=== PATIENT | male | born 1965 | race Caucasian/White ===

== ENCOUNTER 2017-08-21 12:57 | Emergency (ER) | payer MEDICARE, MEDICAID ==
[~2017-08-21] VITALS: Ht 185.4 cm; Wt 86.2 kg
[~2017-08-21 12:57] MED LIST: METH4TAB PO; PAIN MED; SULF1TAB35 PO
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
[2017-08-21 13:38] LABS: BASOPHILS % (AUTO) 0 % (0-10); EOSINOPHILS # (AUTO) 0.1 10^3/uL (0.0-0.3); EOSINOPHILS % (AUTO) 1 % (0-10); HEMATOCRIT 38 % (40-54); HEMOGLOBIN 13.7 G/DL (13.3-17.7); LYMPHOCYTES # (AUTO) 1.5 X 10^3 (1.0-4.0); LYMPHOCYTES % (AUTO) 25 % (12-44); MEAN CORPUSCULAR HEMOGLOBIN 33 PG (25-34); MEAN CORPUSCULAR HGB CONC 36 G/DL (32-36); MEAN CORPUSCULAR VOLUME 91 FL (80-99); MEAN PLATELET VOLUME 10.1 FL (7.4-10.4); MONOCYTES # (AUTO) 0.6 X 10^3 (0.0-1.0); MONOCYTES % (AUTO) 9 % (0-12); NEUTROPHILS # (AUTO) 3.9 X 10^3 (1.8-7.8); NEUTROPHILS % (AUTO) 64 % (42-75); PLATELET COUNT 298 10^3/uL (130-400); RED BLOOD COUNT 4.19 10^6/uL (4.35-5.85); RED CELL DISTRIBUTION WIDTH 13.4 % (10.0-14.5); WHITE BLOOD COUNT 6.1 10^3/uL (4.3-11.0)
[2017-08-21 14:00] LABS: ALANINE AMINOTRANSFERASE 35 U/L (0-55); ALBUMIN 4.1 GM/DL (3.2-4.5); ALKALINE PHOSPHATASE 50 U/L (40-136); BILIRUBIN,TOTAL 0.3 MG/DL (0.1-1.0); BUN/CREATININE RATIO 10; CALCIUM 8.2 MG/DL (8.5-10.1); CARBON DIOXIDE 22 MMOL/L (21-32); CHLORIDE 102 MMOL/L (98-107); CREATININE SERUM 0.71 MG/DL (0.60-1.30); GFR ESTIMATED > 60; GLUCOSE 74 MG/DL (70-105); POTASSIUM 5.2 MMOL/L (3.6-5.0); SODIUM 137 MMOL/L (135-145); TOTAL PROTEIN 7.9 GM/DL (6.4-8.2)
--- OUTSIDE RECORDS SUMMARY | 2017-08-21 14:22 | XMS REPORT ---
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 08704635 Problem 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 Active 96302417 ALLERGIES No Information ENCOUNTERS Encounter Location Date Diagnosis [address] [id number] Dec, Mood disorder F39 and Acute bilateral low back pain without sciatica M54.[address] [id number] Nov, Mood disorder F39 ; Other fatigue R53.83 and Major depressive disorder, single episode, unspecified F32.9 [facility] [id number], [place] [address] Nov, 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 [address] [place] [id number] May, Ganglion cyst of wrist, left M67.432 [facility] [address] [facility] [id number], [place] [address] Nov, [facility] [address] [facility] [id number], [place] [address] Nov, [facility] [address] [id number], [place] [address] Nov, [facility] [id number] [address] Nov, [facility] [address] [facility] [id number] [place] [address] Nov, [facility] [address] [facility] [id number] [place] [address] Nov, IMMUNIZATIONS No Known Immunizations SOCIAL HISTORY Never Assessed REASON FOR VISIT assisted patient PLAN OF CARE VITAL SIGNS Height 73 in 2016-05-31 Weight 181 lbs 2016-05-31 Heart Rate 60 bpm 2016-05-31 Respiratory Rate 16 2016-05-31 BMI 23.88 kg/m2 2016-05-31 Blood pressure systolic 108 mmHg 2016-05-31 Blood pressure diastolic 68 mmHg 2016-05-31 MEDICATIONS Medication Instructions Dosage Frequency Start Date End Date Duration Status Naproxen 500 MG Orally every 12 hrs 1 tablet as needed 12h 25 May, 2016 Active RESULTS No Results PROCEDURES No Known procedures INSTRUCTIONS MEDICATIONS ADMINISTERED No Known Medications
--- OUTSIDE RECORDS SUMMARY | 2017-08-21 14:22 | XMS REPORT ---
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 99864012 Problem 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 Active 77256276 ALLERGIES No Known Allergies ENCOUNTERS Encounter Location Date Diagnosis [address] [id number] Dec, Mood disorder F39 and Acute bilateral low back pain without sciatica M54.[address] [id number] Nov, Mood disorder F39 ; Other fatigue R53.83 and Major depressive disorder, single episode, unspecified F32.9 [facility] [address] [id number] [address] Nov, 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 [id number], [place] [address] Nov, [facility] [address] [facility] [id number], [place] [address] Nov, [facility] [id number], [place] [address] Nov, [facility] [address] [facility] [id number] [place] [address] Nov, [facility] [address] [facility] [id number] [place] [address] Nov, [facility] [address] [facility] [id number] [place] [address] Nov, IMMUNIZATIONS No Known Immunizations SOCIAL HISTORY Never Assessed REASON FOR VISIT Nursing Home patient PLAN OF CARE VITAL SIGNS Height 72 in 2016-11-22 Weight 181 lbs 2016-11-22 Heart Rate 60 bpm 2016-11-22 Respiratory Rate 16 2016-11-22 BMI 24.55 kg/m2 2016-11-22 Blood pressure systolic 122 mmHg 2016-11-22 Blood pressure diastolic 74 mmHg 2016-11-22 MEDICATIONS Medication Instructions Dosage Frequency Start Date End Date Duration Status Multivitamin Adult - Orally Once a day 1 tablet 24h Nov, Active Citalopram Hydrobromide 20 MG Orally Once a day 1 tablet 24h Nov, 30 day(s) Active RESULTS No Results PROCEDURES No Known procedures INSTRUCTIONS MEDICATIONS ADMINISTERED No Known Medications
--- OUTSIDE RECORDS SUMMARY | 2017-08-21 14:22 | XMS REPORT ---
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 Active 00728606 ALLERGIES No Known Allergies ENCOUNTERS Encounter Location Date Diagnosis [address] [id number] Dec, Mood disorder F39 and Acute bilateral low back pain without sciatica M54.[address] [id number] Nov, Mood disorder F39 ; Other fatigue R53.83 and Major depressive disorder, single episode, unspecified F32.9 [facility] [id number], [place] [address] Nov, 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 [address] [place] [id number] May, Ganglion cyst of wrist, left M67.432 [facility] [address] [facility] [id number], [place] [address] Nov, [facility] [address] [facility] [id number], [place] [address] Nov, [facility] [address] [id number], [place] [address] Nov, [facility] [address] [facility] [id number] [place] [address] Nov, [facility] [address] [facility] [id number] [place] [address] Nov, [facility] [address] [facility] [id number] [place] [address] Nov, IMMUNIZATIONS No Known Immunizations SOCIAL HISTORY Never Assessed REASON FOR VISIT long term rx PLAN OF CARE VITAL SIGNS MEDICATIONS Medication Instructions Dosage Frequency Start Date End Date Duration Status Venlafaxine HCl 37.5 MG Orally twice a day 1 tablet with food 12h Nov, 30 day(s) Active RESULTS No Results PROCEDURES No Known procedures INSTRUCTIONS MEDICATIONS ADMINISTERED No Known Medications
--- OUTSIDE RECORDS SUMMARY | 2017-08-21 14:22 | XMS REPORT | Continuity of Care Document ---
Author Author [facility] Address Unknown Phone Unavailable Allergies There is no data. Medications There is no data. Problems Date Dx Coded Attending Type Code Diagnosis Diagnosed By 11/06/2013 TABITHA BAILEY, ISABELLA Estrella 294.9 OR COG DIS NOS 11/06/2013 ISABELLA LU PHD 303.90 ALCOHOLISM Procedures [place] [address] PSYCH DIAGNOSTIC EVALUATION 11/06/2013 Results There is no data. Encounters ACCT No. Visit Date/Time Discharge Status Pt. Type Provider Facility Loc./Unit Complaint [id number] 11/06/2013 08:55:00 11/06/2013 23:59:59 CLS Outpatient ISABELLA LU PHD
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
[2017-08-21 16:50] VITALS: BP 116/80
== END 2017-08-21 16:52 | disposition home or self-care (01) ==
LOC: EDUNIT# 12:57 → ER 12:58
DX: F10.10 Alcohol abuse, uncomplicated (principal)
CPT/HCPCS: 36415; 70450; 80053; 80320; 85025; 93005

== ENCOUNTER 2017-12-01 07:51 | Emergency (ER) | payer MEDICAID, MEDICARE ==
[~2017-12-01] VITALS: Ht 182.9 cm; Wt 79.4 kg
--- OUTSIDE RECORDS SUMMARY | 2017-12-01 07:55 | XMS REPORT | Continuity of Care Document ---
Author Author [facility] of [facility] of [facility] Address Unknown Phone Unavailable Allergies Active Description Code Type Severity Reaction Onset Reported/Identified Relationship to Patient Clinical Status Yes No Known Drug Allergies [id number] Drug Allergy Mild N/A 09/04/2008 Medications There is no data. Problems Date Dx Coded Attending Type Code Diagnosis Diagnosed By 11/06/2013 TABITHA BAILEY, ISABELLA Estrella 294.9 OR COG DIS NOS 11/06/2013 TABITHA BAILEY, ISABELLA Estrella 303.90 ALCOHOLISM 08/21/2017 ELY KIM, RACHELL Barroso Ot F10.10 ALCOHOL ABUSE, UNCOMPLICATED 08/23/2017 ELY KIM, RACHELL Barroso Ot F10.10 ALCOHOL ABUSE, UNCOMPLICATED 08/23/2017 ELY KIM, RACHELL Barroso Ot F10.10 ALCOHOL ABUSE, UNCOMPLICATED Procedures Code Description [place] [address] PSYCH DIAGNOSTIC EVALUATION 11/06/2013 Results Test Result Range Complete blood count (CBC) with automated white blood cell (WBC) differential - 08/21/17 13:10 Blood leukocytes automated count (number/volume) 6.1 10*3/uL 4.3-11.0 Blood erythrocytes automated count (number/volume) 4.19 10*6/uL 4.35-5.85 Venous blood hemoglobin measurement (mass/volume) 13.7 g/dL 13.3-17.7 Blood hematocrit (volume fraction) 38 % 40-54 Automated erythrocyte mean corpuscular volume 91 [foz_us] 80-99 Automated erythrocyte mean corpuscular hemoglobin (mass per erythrocyte) 33 pg 25-34 Automated erythrocyte mean corpuscular hemoglobin concentration measurement ( mass/volume) 36 g/dL 32-36 Automated erythrocyte distribution width ratio 13.4 % 10.0-14.5 Automated blood platelet count (count/volume) 298 10*3/uL 130-400 Automated blood platelet mean volume measurement 10.1 [foz_us] 7.4-10.4 Automated blood neutrophils/100 leukocytes 64 % 42-75 Automated blood lymphocytes/100 leukocytes 25 % 12-44 Blood monocytes/100 leukocytes 9 % 0-12 Automated blood eosinophils/100 leukocytes 1 % 0-10 Automated blood basophils/100 leukocytes 0 % 0-10 Blood neutrophils automated count (number/volume) 3.9 10*3 1.8-7.8 Blood lymphocytes automated count (number/volume) 1.5 10*3 1.0-4.0 Blood monocytes automated count (number/volume) 0.6 10*3 0.0-1.0 Automated eosinophil count 0.1 10*3/uL 0.0-0.3 Automated blood basophil count (count/volume) 0.0 10*3/uL 0.0-0.1 Comprehensive metabolic panel - 08/21/17 13:10 Serum or plasma sodium measurement (moles/volume) 137 mmol/L 135-145 Serum or plasma potassium measurement (moles/volume) 5.2 mmol/L 3.6-5.0 Serum or plasma chloride measurement (moles/volume) 102 mmol/L 98-107 Carbon dioxide 22 mmol/L 21-32 Serum or plasma anion gap determination (moles/volume) 13 mmol/L 5-14 Serum or plasma urea nitrogen measurement (mass/volume) 7 mg/dL 7-18 Serum or plasma creatinine measurement (mass/volume) 0.71 mg/dL 0.60-1.30 Serum or plasma urea nitrogen/creatinine mass ratio 10 NRG Serum or plasma creatinine measurement with calculation of estimated glomerular filtration rate > NRG Serum or plasma glucose measurement (mass/volume) 74 mg/dL 70-105 Serum or plasma calcium measurement (mass/volume) 8.2 mg/dL 8.5-10.1 Serum or plasma total bilirubin measurement (mass/volume) 0.3 mg/dL 0.1-1.0 Serum or plasma alkaline phosphatase measurement (enzymatic activity/volume) 50 U/L 40-136 Serum or plasma aspartate aminotransferase measurement (enzymatic activity/ volume) 74 U/L 5-34 Serum or plasma alanine aminotransferase measurement (enzymatic activity/volume ) 35 U/L 0-55 Serum or plasma protein measurement (mass/volume) 7.9 g/dL 6.4-8.2 Serum or plasma albumin measurement (mass/volume) 4.1 g/dL 3.2-4.5 Serum or plasma ethanol measurement (mass/volume) - 08/21/17 13:10 Serum or plasma ethanol measurement (mass/volume) 391 mg/dL <10 Encounters ACCT No. Visit Date/Time Discharge Status Pt. Type Provider Facility Loc./Unit Complaint [id number] 11/06/2013 08:55:00 11/06/2013 23:59:59 CLS Outpatient TABITHA PHD, ISABELLA Estrella [id number] 08/21/2017 12:58:00 08/21/2017 16:52:00 DIS Emergency ELY KIM, RACHELL Barroso [facility] ER ETOH
[2017-12-01 08:19] LABS: BILIRUBIN,URINE NEGATIVE (NEGATIVE); CLARITY,URINE CLEAR; COLOR,URINE YELLOW; GLUCOSE, URINE (UA) NEGATIVE (NEGATIVE); KETONES,URINE NEGATIVE (NEGATIVE); LEUKOCYTE ESTERASE ,URINE NEGATIVE (NEGATIVE); NITRITE,URINE NEGATIVE (NEGATIVE); PH,URINE 7 (5-9); PROTEIN,URINE NEGATIVE (NEGATIVE); UROBILINOGEN,URINE NORMAL (NORMAL)
[2017-12-01 08:47] LABS: AMORPHOUS SEDIMENT,UR MOD AMOR URATES /LPF; BACTERIA,URINE MODERATE /HPF; SQUAMOUS EPITHELIAL CELL,UR RARE /HPF; WBC,URINE 0-2 /HPF
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
[2017-12-01] MEDS ORDERED: HYDR-3812 PO (10:09)
[2017-12-01 10:15] VITALS: BP 125/88
== END 2017-12-01 10:15 | disposition home or self-care (01) ==
LOC: ER 07:51 → EDUNIT# 07:51 → ER 10:15
DX: S22.31XA Fracture of one rib, right side, initial encounter for closed fracture (principal); F12.10 Cannabis abuse, uncomplicated; Z77.22 Contact with and (suspected) exposure to environmental tobacco smoke (acute) (chronic); V68.9XXA Unspecified occupant of heavy transport vehicle injured in noncollision transport accident in traffic accident, initial encounter
CPT/HCPCS: 71046; 71100; 81000

== ENCOUNTER 2018-01-01 09:16 | Emergency (ER) | payer MEDICARE ==
[~2018-01-01] VITALS: Ht 182.9 cm; Wt 79.4 kg
[~2018-01-01 09:16] MED LIST changes: +HYDR-3812 PO
--- OUTSIDE RECORDS SUMMARY | 2018-01-01 09:20 | XMS REPORT | Continuity of Care Document ---
Author Author [facility] Address Unknown Phone Unavailable Allergies Active Description Code Type Severity Reaction Onset Reported/Identified Relationship to Patient Clinical Status Yes No Known Drug Allergies [id number] Drug Allergy Mild N/A 09/04/2008 Medications There is no data. Problems Date Dx Coded Attending Type Code Diagnosis Diagnosed By 11/06/2013 TABITHA PHD, ISABELLA Estrella 294.9 OR COG DIS NOS 11/06/2013 TABITHA PHD, ISABELLA Estrella 303.90 ALCOHOLISM 08/21/2017 ELY KIM, RACHELL Barroso Ot F10.10 ALCOHOL ABUSE, UNCOMPLICATED 08/23/2017 RACHELL GRAVES MD Ot F10.10 ALCOHOL ABUSE, UNCOMPLICATED 08/23/2017 RACHELL GRAVES MD Ot F10.10 ALCOHOL ABUSE, UNCOMPLICATED 12/01/2017 DONITA MERCADO MD Ot F12.10 CANNABIS ABUSE, UNCOMPLICATED 12/01/2017 DONITA MERCADO MD Ot R10.9 UNSPECIFIED ABDOMINAL PAIN 12/01/2017 DONITA MERCADO MD Ot S22.31XA FRACTURE OF ONE RIB, RIGHT SIDE, INIT FO 12/01/2017 DONITA MERCADO MD Ot V68.9XXA OCCUP OF [facility] 12/01/2017 DONITA MERCADO MD Ot Z77.22 CNTCT W AND EXPSR TO ENVIRON TOBACCO SMO 12/05/2017 DONITA MERCADO MD Ot F12.10 CANNABIS ABUSE, UNCOMPLICATED 12/05/2017 DONITA MERCADO MD Ot R10.9 UNSPECIFIED ABDOMINAL PAIN 12/05/2017 DONITA MERCADO MD Ot S22.31XA FRACTURE OF ONE RIB, RIGHT SIDE, INIT FO 12/05/2017 DONITA MERCADO MD Ot V68.9XXA OCCUP OF HV [facility] 12/05/2017 JESS KIM, DONITA Evans Ot Z77.22 CNTCT W AND EXPSR TO ENVIRON TOBACCO SMO Procedures Code [place] [address] PSYCH DIAGNOSTIC EVALUATION 11/06/2013 Results Test Result [...] plasma ethanol measurement (mass/volume) 391 mg/dL <10 Complete urinalysis with reflex to culture - 12/01/17 08:15 Urine color determination YELLOW NRG Urine clarity determination CLEAR NRG Urine pH measurement by test strip 7 5-9 Specific gravity of urine by test strip 1.010 1.016- 1.022 Urine protein assay by test strip, semi-quantitative NEGATIVE NEGATIVE Urine glucose detection by automated test strip NEGATIVE NEGATIVE Erythrocytes detection in urine sediment by light microscopy NEGATIVE NEGATIVE Urine ketones detection by automated test strip NEGATIVE NEGATIVE Urine nitrite detection by test strip NEGATIVE NEGATIVE Urine total bilirubin detection by test strip NEGATIVE NEGATIVE Urine urobilinogen measurement by automated test strip (mass/volume) NORMAL NORMAL Urine leukocyte esterase detection by dipstick NEGATIVE NEGATIVE Automated urine sediment erythrocyte count by microscopy (number/high power field) NONE NRG Automated urine sediment leukocyte count by microscopy (number/high power field ) [HPF] NRG Bacteria detection in urine sediment by light microscopy MODERATE NRG Squamous epithelial cells detection in urine sediment by light microscopy RARE NRG Crystals detection in urine sediment by light microscopy PRESENT NRG Casts detection in urine sediment by light microscopy NONE NRG Mucus detection in urine sediment by light microscopy NEGATIVE NRG Complete urinalysis with reflex to culture NO NRG Amorphous sediment detection in urine sediment by light microscopy MOD BRYCE URATES NRG Renal epithelial cells detection in urine sediment by light microscopy NONE NRG Encounters ACCT No. Visit Date/Time Discharge Status Pt. Type Provider Facility Loc./Unit Complaint [id number] 11/06/2013 08:55:00 11/06/2013 23:59:59 CLS Outpatient TABITHA PHD, ISABELLA Estrella [id number] 12/01/2017 07:51:00 12/01/2017 10:15:00 DIS Emergency JESS KIM, DONITA Evans [facility] SIDE PAIN [id number] 08/21/2017 12:58:00 08/21/2017 16:52:00 DIS Emergency ELY KIM, RACHELL Barroso [facility] ETOH
--- NOTE | 2018-01-01 11:08 | ED Back Pain ---
General Chief Complaint: Back Problems Stated Complaint: BACK PAIN Nursing Triage Note: PT STATES HE HIT DESK TO R-FLANK ABOUT A WEEK AGO. CONTINUES TO HURT HIM Nursing Sepsis Screen: No Definite Risk Source of Information: Patient Exam Limitations: No Limitations History of Present Illness Date Seen by Provider: Jan 01, 2018 Time Seen by Provider: 11:07 Initial Comments To ER with right flank pain for over a week since hitting this area on the corner of a desk. No obvious hematuria. Location: Lumbar Spine Timing/Duration: 1 Week Severity: Moderate Pain/Injury Location: Back Method of Injury: Fall Modifying Factors: Worse With Movement Associated Symptoms: lower back pain Allergies and Home Medications Allergies Coded Allergies: No Known Drug Allergies (Unverified , 09/04/08) Home Medications Hydrocodone/Acetaminophen 1 Each Tablet, 1 EACH PO Q4-6HR PRN for PAIN-MODERATE Prescribed by: DONITA PARK on 12/01/17 1009 Patient Home Medication List Home Medication List Reviewed: Yes Review of Systems Constitutional: see HPI EENTM: see HPI Respiratory: no symptoms reported Cardiovascular: no symptoms reported Genitourinary: no symptoms reported Musculoskeletal: see HPI, back pain Skin: no symptoms reported Psychiatric/Neurological: No Symptoms Reported Past Ttyvtek-Gglmts-Ioisuh Hx Patient Social History Alcohol Beverage of Choice: Vodka Type Used: Cigarettes 2nd Hand Smoke Exposure: Yes Recent Foreign Travel: No Contact w/Someone Who Travel: No Recent Infectious Disease Expo: No Past Medical History Surgeries: No Respiratory: No Cardiac: No Neurological: No Reproductive Disorders: No Gastrointestinal: No Musculoskeletal: No Endocrine: No HEENT: No Cancer: No Psychosocial: Yes (Regular alcohol use) Physical Exam Vital Signs Vital Signs - First Documented 01/01/18 10:39 Temp 98.7 Pulse 92 Resp 18 B/P (MAP) 110/88 (95) Pulse Ox 99 O2 Delivery Room Air Capillary Refill : Less Than 3 Seconds Height, Weight, BMI Height: 6'0" Weight: 175lbs. oz. 79.325609zh; BMI Method:Stated General Appearance: No Apparent Distress, WD/WN Neck: Full Range of Motion, Normal Inspection Respiratory: Normal Breath Sounds, No Accessory Muscle Use, No Respiratory Distress Gastrointestinal: Normal Bowel Sounds, Non Tender, Soft Neurologic/Psychiatric: Alert, Oriented x3 Skin: Normal Color, Warm/Dry Progress/Results/Core Measures Results/Orders Lab Results Laboratory Tests Test 01/01/18 11:35 Range/Units White Blood Count 7.9 4.3-11.0 10^3/uL Red Blood Count 4.65 4.35-5.85 10^6/uL Hemoglobin 14.8 13.3-17.7 G/DL Hematocrit 43 40-54 % Mean Corpuscular Volume 93 80-99 FL Mean Corpuscular Hemoglobin 32 25-34 PG Mean Corpuscular Hemoglobin Concent 34 32-36 G/DL Red Cell Distribution Width 12.7 10.0-14.5 % Platelet Count 278 130-400 10^3/uL Mean Platelet Volume 9.6 7.4-10.4 FL Neutrophils (%) (Auto) 74 42-75 % Lymphocytes (%) (Auto) 18 12-44 % Monocytes (%) (Auto) 7 0-12 % Eosinophils (%) (Auto) 1 0-10 % Basophils (%) (Auto) 0 0-10 % Neutrophils # (Auto) 5.8 1.8-7.8 X 10^3 Lymphocytes # (Auto) 1.4 1.0-4.0 X 10^3 Monocytes # (Auto) 0.5 0.0-1.0 X 10^3 Eosinophils # (Auto) 0.1 0.0-0.3 10^3/uL Basophils # (Auto) 0.0 0.0-0.1 10^3/uL Sodium Level 138 135-145 MMOL/L Potassium Level 4.3 3.6-5.0 MMOL/L Chloride Level 103 98-107 MMOL/L Carbon Dioxide Level 23 21-32 MMOL/L Anion Gap 12 5-14 MMOL/L Blood Urea Nitrogen 9 7-18 MG/DL Creatinine 0.76 0.60-1.30 MG/DL Estimat Glomerular Filtration Rate > 60 BUN/Creatinine Ratio 12 Glucose Level 121 H 70-105 MG/DL Calcium Level 9.5 8.5-10.1 MG/DL My Orders Orders - SANJAY MEJIA APRN Cbc With Automated Diff (01/01/18 10:55) Basic Metabolic Panel (01/01/18 10:55) Iv Heplock-Insert (Order) (01/01/18 10:55) Ct Abdomen/Pelvis W (01/01/18 10:55) Iohexol Injection (Omnipaque 350 Mg/Ml 1 (01/01/18 11:15) Di Iv Start (Assessment) .IV start (01/01/18 11:08) Contrast Received (Contrast Received) (01/01/18 11:15) Ns (Ivpb) (Sodium Chloride 0.9%) (01/01/18 11:15) Ketorolac Injection (Toradol Injection) (01/01/18 11:45) Fentanyl Injection (Sublimaze Injection (01/01/18 11:45) Iohexol Injection (Omnipaque 350 Mg/Ml 1 (01/01/18 12:30) Contrast Received (Contrast Received) (01/01/18 12:30) Ns (Ivpb) (Sodium Chloride 0.9%) (01/01/18 12:30) Medications Given in ED Current Medications Medications Dose Ordered Sig/Barbara Route Start Time Stop Time Status Last Admin Dose Admin Fentanyl Citrate 50 mcg ONCE ONCE IVP 01/01/18 11:45 01/01/18 11:46 DC 01/01/18 11:48 50 MCG Iohexol 100 ml ONCE ONCE IV 01/01/18 11:15 01/01/18 11:16 DC 01/01/18 12:48 100 ML Ketorolac Tromethamine 30 mg ONCE ONCE IVP 01/01/18 11:45 01/01/18 11:46 DC 01/01/18 11:48 30 MG Sodium Chloride 250 ml ONCE ONCE IV 01/01/18 11:15 01/01/18 11:16 DC 01/01/18 12:48 250 ML Vital Signs/I&O 01/01/18 10:39 Temp 98.7 Pulse 92 Resp 18 B/P (MAP) 110/88 (95) Pulse Ox 99 O2 Delivery Room Air Blood Pressure Mean: 95 Diagnostic Imaging Diagonstic Imaging: CT Comments NAME: [place] HERRERA [facility] REC#: [id number] PT STATUS: REG ER : 1965 PHYSICIAN: SANJAY MEJIA APRN ADMIT DATE: 01/01/18/ER Draft Date of Exam:01/01/18 CT ABDOMEN/PELVIS W PROCEDURE: CT abdomen and pelvis with contrast. TECHNIQUE: Multiple contiguous axial images were obtained through the abdomen and pelvis after administration of intravenous contrast. INDICATION: Right posterior pain. COMPARISON: No prior studies are available for comparison. FINDINGS: The lung bases are clear. The liver demonstrates generalized low density consistent with hepatic steatosis. No discrete liver mass is identified. The gallbladder is unremarkable. No biliary duct dilatation is identified. The pancreas and spleen are unremarkable. No adrenal mass is seen. The kidneys are unremarkable. The aorta is non-aneurysmal. The small and large bowel loops are normal caliber. There is no ascites. No inflammatory process is seen. The bladder and prostate are unremarkable. No abdominal or pelvic lymphadenopathy is seen. Evaluation of the bony structures does demonstrate acute appearing fracture involving the right transverse process of L1 as well as L3 and L4. There also appears to be a subtle fracture of the right transverse process of L2. There are healing fractures involving right-sided lateral sixth, seventh, eighth and ninth ribs. IMPRESSION: 1. No acute abnormality in the abdomen or pelvis is identified. 2. Healing right sixth through ninth rib fractures. There are acute fractures involving right sided transverse processes of L1 through L4. Dictated on workstation # [id number] Dict: 01/01/18 1317 Trans: 01/01/18 1328 [facility] [id number] Interpreted by: JODIE CARMONA MD Electronically signed by: Departure Impression Primary Impression: Lumbar transverse process fracture Qualified Codes: S32.009A - Unspecified fracture of unspecified lumbar vertebra, initial encounter for closed fracture Disposition: 01 HOME, SELF-CARE Condition: Improved Departure-Patient Inst. Decision time for Depature: 13:35 Referrals: NO,LOCAL PHYSICIAN (PCP/Family) Primary Care Physician Patient Instructions: Low Back Pain (DC) Add. Discharge Instructions: 1. Return to ER for any concerns 2. Follow-up with your doctor next week 3. Pain medication as directed. All discharge instructions reviewed with patient and/or family. Voiced understanding. Scripts Hydrocodone/Acetaminophen ([place] 5-325 Tablet) 1 Each Tablet 1 EACH PO Q6H PRN for PAIN-MODERATE MDD 10, #20 TAB Prov: SANJAY MEJIA APRN 01/01/18 SANJAY MEJIA APRN Jan 01, 2018 11:08
[2018-01-01] MEDS ORDERED: IOHEXOL 350 MG/ML 100 ML (OMNIPAQUE 350) VIAL IV ONE ×2 (11:15→12:30)
[2018-01-01] MEDS ORDERED: RECEIVED CONTRAST (Hold Metformin) IV SCH ×2 (11:15→12:30)
[2018-01-01] MEDS ORDERED: NS 250 ML (IVPB) BAG IV ONE ×2 (11:15→12:30)
[2018-01-01 11:43] LABS: BASOPHILS % (AUTO) 0 % (0-10); EOSINOPHILS # (AUTO) 0.1 10^3/uL (0.0-0.3); EOSINOPHILS % (AUTO) 1 % (0-10); HEMATOCRIT 43 % (40-54); HEMOGLOBIN 14.8 G/DL (13.3-17.7); LYMPHOCYTES # (AUTO) 1.4 X 10^3 (1.0-4.0); LYMPHOCYTES % (AUTO) 18 % (12-44); MEAN CORPUSCULAR HEMOGLOBIN 32 PG (25-34); MEAN CORPUSCULAR HGB CONC 34 G/DL (32-36); MEAN CORPUSCULAR VOLUME 93 FL (80-99); MEAN PLATELET VOLUME 9.6 FL (7.4-10.4); MONOCYTES # (AUTO) 0.5 X 10^3 (0.0-1.0); MONOCYTES % (AUTO) 7 % (0-12); NEUTROPHILS # (AUTO) 5.8 X 10^3 (1.8-7.8); NEUTROPHILS % (AUTO) 74 % (42-75); PLATELET COUNT 278 10^3/uL (130-400); RED BLOOD COUNT 4.65 10^6/uL (4.35-5.85); RED CELL DISTRIBUTION WIDTH 12.7 % (10.0-14.5); WHITE BLOOD COUNT 7.9 10^3/uL (4.3-11.0)
[2018-01-01] MEDS ORDERED: fentaNYL INJECTION 100 MCG/2 ML AMP IVP ONE (11:45)
[2018-01-01] MEDS ORDERED: KETOROLAC 30 MG/ML VIAL IVP ONE (11:45)
[2018-01-01 12:00] LABS: BUN/CREATININE RATIO 12; CALCIUM 9.5 MG/DL (8.5-10.1); CARBON DIOXIDE 23 MMOL/L (21-32); CHLORIDE 103 MMOL/L (98-107); CREATININE SERUM 0.76 MG/DL (0.60-1.30); GFR ESTIMATED > 60; GLUCOSE 121 MG/DL (70-105); POTASSIUM 4.3 MMOL/L (3.6-5.0); SODIUM 138 MMOL/L (135-145)
--- NOTE | 2018-01-01 13:29 | Diagnostic Imaging Report ---
PROCEDURE: CT abdomen and pelvis with contrast. TECHNIQUE: Multiple contiguous axial images were obtained through the abdomen and pelvis after administration of intravenous contrast. INDICATION: Right posterior pain. COMPARISON: No prior studies are available for comparison. FINDINGS: The lung bases are clear. The liver demonstrates generalized low density consistent with hepatic steatosis. No discrete liver mass is identified. The gallbladder is unremarkable. No biliary duct dilatation is identified. The pancreas and spleen are unremarkable. No adrenal mass is seen. The kidneys are unremarkable. The aorta is non-aneurysmal. The small and large bowel loops are normal caliber. There is no ascites. No inflammatory process is seen. The bladder and prostate are unremarkable. No abdominal or pelvic lymphadenopathy is seen. Evaluation of the bony structures does demonstrate acute appearing fracture involving the right transverse process of L1 as well as L3 and L4. There also appears to be a subtle fracture of the right transverse process of L2. There are healing fractures involving right-sided lateral sixth, seventh, eighth and ninth ribs. IMPRESSION: 1. No acute abnormality in the abdomen or pelvis is identified. 2. Healing right sixth through ninth rib fractures. There are acute fractures involving right sided transverse processes of L1 through L4. Dictated by: Dictated on workstation # [id number]
[2018-01-01] MEDS ORDERED: HYDR-4226 PO (13:38)
[2018-01-01 13:56] VITALS: BP 110/88
== END 2018-01-01 13:56 | disposition home or self-care (01) ==
LOC: EDUNIT# 09:16 → ER 09:17
DX: S32.018A Other fracture of first lumbar vertebra, initial encounter for closed fracture (principal); S32.028A Other fracture of second lumbar vertebra, initial encounter for closed fracture; S32.038A Other fracture of third lumbar vertebra, initial encounter for closed fracture; S32.048A Other fracture of fourth lumbar vertebra, initial encounter for closed fracture; Z77.22 Contact with and (suspected) exposure to environmental tobacco smoke (acute) (chronic); W22.09XA Striking against other stationary object, initial encounter
CPT/HCPCS: 36415; 74177; 80048; 85025

== ENCOUNTER 2019-01-22 17:13 | Observation (INO) | payer MEDICARE ==
[~2019-01-22] VITALS: Ht 185.5 cm; Wt 83.1 kg
[~2019-01-22 17:13] MED LIST changes: +HYDR-4226 PO
[2019-01-22] MEDS ORDERED: NS IV 500 ML 500 ML IV SCH (17:15)
[2019-01-22] MEDS ORDERED: THIAMINE 100 MG/ML 2 ML (VITAMIN B-1) VIAL IV ONE (17:15)
[2019-01-22 17:24] LABS: HEMATOCRIT 41 % (40-54); MEAN CORPUSCULAR HEMOGLOBIN 32 PG (25-34); MEAN CORPUSCULAR HGB CONC 34 G/DL (32-36); MEAN CORPUSCULAR VOLUME 93 FL (80-99); PLATELET COUNT 112 10^3/uL (130-400); RED CELL DISTRIBUTION WIDTH 12.4 % (10.0-14.5); WHITE BLOOD COUNT 6.4 10^3/uL (4.3-11.0)
[2019-01-22 17:25] LABS: BASOPHILS % (AUTO) 0 % (0-10); EOSINOPHILS % (AUTO) 0 % (0-10); LYMPHOCYTES # (AUTO) 0.7 X 10^3 (1.0-4.0); LYMPHOCYTES % (AUTO) 11 % (12-44); MEAN PLATELET VOLUME 10.9 FL (7.4-10.4); MONOCYTES # (AUTO) 0.8 X 10^3 (0.0-1.0); MONOCYTES % (AUTO) 13 % (0-12); NEUTROPHILS # (AUTO) 4.8 X 10^3 (1.8-7.8); NEUTROPHILS % (AUTO) 76 % (42-75)
--- NOTE | 2019-01-22 17:26 | ED Neurological Problem ---
General Chief Complaint: Neurological Problems Stated Complaint: SEIZURES Source: patient, EMS Exam Limitations: no limitations History of Present Illness Date Seen by Provider: Jan 22, 2019 Time Seen by Provider: 17:17 Initial Comments Patient presents by EMS with complaint of seizure.....not sure who called EMS, but on arrival patient was not having active Sz. Given 0.5mg Ativan en-route. Patient is an alcoholic and homeless. Stated last drink 2-3 days ago. Admits to history of seizures, although has never been on medication. Patient very poor historian and somewhat disoriented on arrival and unable to give review of systems or past medical history Allergies and Home Medications Allergies Coded Allergies: No Known Drug Allergies (Unverified , 09/04/08) Home Medications Hydrocodone/Acetaminophen 1 Each Tablet, 1 EACH PO Q4-6HR PRN for PAIN-MODERATE Prescribed by: DONITA PARK on 12/01/17 1009 Hydrocodone/Acetaminophen 1 Each Tablet, 1 EACH PO Q6H PRN for PAIN-MODERATE Prescribed by: SANJAY MEJIA on 01/01/18 1338 Patient Home Medication List Home Medication List Reviewed: Yes Review of Systems Review of Systems Constitutional: see HPI; No fever, No weakness Respiratory: No cough, No short of breath Cardiovascular: see HPI; No chest pain, No palpitations, No syncope Gastrointestinal: No abdominal pain, No loss of appetite, No vomiting Musculoskeletal: No back pain, No joint pain, No muscle stiffness, No muscle cramps, No neck pain Psychiatric/Neurological: See HPI; Denies Headache, Denies Weakness Past Bxwylso-Nncoyt-Qsydtr Hx Past Med/Social Hx: Reviewed Nursing Past Med/Soc Hx Patient Social History Alcohol Beverage of Choice: Vodka Type Used: Cigarettes 2nd Hand Smoke Exposure: Yes Recent Foreign Travel: No Recent Hopitalizations: No Immunizations Up To Date Tetanus Booster (TDap): Unknown PED Vaccines UTD: Yes Seasonal Allergies Seasonal Allergies: No Past Medical History Surgeries: No Respiratory: No Cardiac: No Neurological: No Reproductive Disorders: No Gastrointestinal: No Musculoskeletal: No Endocrine: No HEENT: No Cancer: No Psychosocial: Yes (Regular alcohol use) Integumentary: No Physical Exam Vital Signs Vital Signs - First Documented 01/22/19 17:13 Temp 36.7 Pulse 100 Resp 20 B/P (MAP) 142/92 (109) Pulse Ox 95 O2 Delivery Room Air Capillary Refill : Height, Weight, BMI Height: 6'0" Weight: 175lbs. oz. 79.824138qj; BMI Method:Stated General Appearance: no apparent distress, other (dissheveled appearance. alert, but lethargic. slow to answer) HEENT: PERRL/EOMI, normal ENT inspection Neck: supple, normal inspection Respiratory: chest non-tender, lungs clear Cardiovascular: regular rate, rhythm, no edema Gastrointestinal: non tender, soft Back: normal inspection, no CVA tenderness, no vertebral tenderness Extremities: normal range of motion, non-tender, normal inspection, no pedal edema, no calf tenderness Neurologic/Psychiatric: no motor/sensory deficits Focused Exam Lactate Level 01/22/19 17:25: Lactic Acid Level 3.55*H Lactic Acid Level Laboratory Tests Test 01/22/19 17:25 Lactic Acid Level 3.55 MMOL/L (0.50-2.00) *H Progress/Results/Core Measures Results/Orders Lab Results Laboratory Tests Test 01/22/19 17:11 01/22/19 17:17 01/22/19 17:25 Range/Units White Blood Count 6.4 4.3-11.0 10^3/uL Red Blood Count 4.40 4.35-5.85 10^6/uL Hemoglobin 14.0 13.3-17.7 G/DL Hematocrit 41 40-54 % Mean Corpuscular Volume 93 80-99 FL Mean Corpuscular Hemoglobin 32 25-34 PG Mean Corpuscular Hemoglobin Concent 34 32-36 G/DL Red Cell Distribution Width 12.4 10.0-14.5 % Platelet Count 112 L 130-400 10^3/uL Mean Platelet Volume 10.9 H 7.4-10.4 FL Neutrophils (%) (Auto) 76 H 42-75 % Lymphocytes (%) (Auto) 11 L 12-44 % Monocytes (%) (Auto) 13 H 0-12 % Eosinophils (%) (Auto) 0 0-10 % Basophils (%) (Auto) 0 0-10 % Neutrophils # (Auto) 4.8 1.8-7.8 X 10^3 Lymphocytes # (Auto) 0.7 L 1.0-4.0 X 10^3 Monocytes # (Auto) 0.8 0.0-1.0 X 10^3 Eosinophils # (Auto) 0.0 0.0-0.3 10^3/uL Basophils # (Auto) 0.0 0.0-0.1 10^3/uL Sodium Level 124 *L 135-145 MMOL/L Potassium Level 3.7 3.6-5.0 MMOL/L Chloride Level 86 L 98-107 MMOL/L Carbon Dioxide Level 17 L 21-32 MMOL/L Anion Gap 21 H 5-14 MMOL/L Blood Urea Nitrogen 9 7-18 MG/DL Creatinine 0.64 0.60-1.30 MG/DL Estimat Glomerular Filtration Rate > 60 BUN/Creatinine Ratio 14 Glucose Level 147 H 70-105 MG/DL Calcium Level 9.2 8.5-10.1 MG/DL Corrected Calcium 8.9 8.5-10.1 MG/DL Total Bilirubin 0.6 0.1-1.0 MG/DL Aspartate Amino Transf (AST/SGOT) 87 H 5-34 U/L Alanine Aminotransferase (ALT/SGPT) 41 0-55 U/L Alkaline Phosphatase 83 40-136 U/L Troponin I < 0.30 <0.30 NG/ML Total Protein 8.1 6.4-8.2 GM/DL Albumin 4.4 3.2-4.5 GM/DL Serum Alcohol < 10 <10 MG/DL Magnesium Level 1.8 1.6-2.4 MG/DL Lactic Acid Level 3.55 *H 0.50-2.00 MMOL/L My Orders Orders - KAYDEN DE LUNA DO Ct Head Wo (01/22/19 17:15) Ed Iv/Invasive Line Start (01/22/19 17:15) Cbc With Automated Diff (01/22/19 17:15) Alcohol (01/22/19 17:15) Comprehensive Metabolic Panel (01/22/19 17:15) Drug Screen Stat (Urine) (01/22/19 17:15) Lactic Acid Analyzer (01/22/19 17:15) Troponin I Fs (01/22/19 17:15) Urinalysis (01/22/19 17:15) Ekg Tracing (01/22/19 17:15) Ns Iv 500 Ml (Sodium Chloride 0.9%) (01/22/19 17:15) Thiamine Injection (Vitamin B-1 Injectio (01/22/19 17:15) Lorazepam Injection (Ativan Injection) (01/22/19 18:00) Lactated Ringers (Lr 1000 Ml Iv Solution (01/22/19 18:00) Magnesium (01/22/19 18:05) Medications Given in ED Current Medications Medications Dose Ordered Sig/Barbara Route Start Time Stop Time Status Last Admin Dose Admin Lorazepam 1 mg ONCE ONCE IVP 01/22/19 18:00 01/22/19 18:01 DC 01/22/19 18:09 1 MG Thiamine HCl 100 mg ONCE ONCE IV 01/22/19 17:15 01/22/19 17:19 DC 01/22/19 17:25 100 MG Vital Signs/I&O 01/22/19 17:13 Temp 36.7 Pulse 100 Resp 20 B/P (MAP) 142/92 (109) Pulse Ox 95 O2 Delivery Room Air Initial ECG Impression Date: Jan 22, 2019 Initial ECG Impression Time: 17:25 Initial ECG Rate: 89 Initial ECG Rhythm: Normal Sinus Initial ECG Intervals: Normal Initial ECG Impression: Normal Departure Communication (Admissions) Time/Spoke to Admitting Phy: 18:[address] Toro @ [id number]- accepts for admission to [facility] Impression Primary Impression: Alcohol withdrawal seizure Qualified Codes: F10.239 - Alcohol dependence with withdrawal, unspecified; R56.9 - Unspecified convulsions Additional Impressions: Hyponatremia Alcoholism /alcohol abuse Disposition: 09 ADMITTED INPATIENT Condition: Stable Admissions Decision to Admit Reason: Admit from ER (General) Decision to Admit/Date: Jan 22, 2019 Time/Decision to Admit Time: 18:00 Departure-Patient Inst. Referrals: NO,LOCAL PHYSICIAN (PCP/Family) Primary Care Physician KAYDEN DE LUNA DO Jan 22, 2019 17:26 POS
[2019-01-22 17:44] LABS: ALANINE AMINOTRANSFERASE 41 U/L (0-55); ALKALINE PHOSPHATASE 83 U/L (40-136); BILIRUBIN,TOTAL 0.6 MG/DL (0.1-1.0); BUN/CREATININE RATIO 14; CALCIUM 9.2 MG/DL (8.5-10.1); CARBON DIOXIDE 17 MMOL/L (21-32); CREATININE SERUM 0.64 MG/DL (0.60-1.30); GFR ESTIMATED > 60; GLUCOSE 147 MG/DL (70-105); POTASSIUM 3.7 MMOL/L (3.6-5.0)
[2019-01-22 17:45] LABS: ALBUMIN 4.4 GM/DL (3.2-4.5); CHLORIDE 86 MMOL/L (98-107); TOTAL PROTEIN 8.1 GM/DL (6.4-8.2)
[2019-01-22 17:47] LABS: SODIUM 124 MMOL/L (135-145)
[2019-01-22] MEDS ORDERED: LORazepam INJ 2 MG/ML (ATIVAN) VIAL IVP ONE (18:00)
[2019-01-22] MEDS ORDERED: LACTATED RINGERS 1,000 ML IV SCH (18:00)
--- NOTE | 2019-01-22 18:01 | Diagnostic Imaging Report ---
PROCEDURE: CT head without contrast. TECHNIQUE: Multiple contiguous axial images were obtained through the brain without the use of intravenous contrast. Auto Exposure Controls were utilized during the CT exam to meet ALARA standards for radiation dose reduction. INDICATION: Seizure. COMPARISON: Correlation is made with prior head CT from 08/21/2017. FINDINGS: Ventricles and sulci are stable in appearance. No sulcal effacement or midline shift is seen. No acute intra-axial or extra-axial hemorrhage is detected. Cisterns are patent. Visualized paranasal sinuses demonstrate some mucosal thickening of the sphenoid. Punctate opacities within the skin of the face are again noted and unchanged. IMPRESSION: No acute intracranial process is detected. Dictated by: Dictated on workstation # [id number]
[2019-01-22] MEDS ORDERED: 1/2 NS IV SOLUTION 1,000 ML IV PRN (20:17)
--- NOTE | 2019-01-22 20:17 | NUR ---
1945YMELANIINDIA admitted to room 420-1, with an admitting diagnosis of alcohol withdrawal, seizures, on 01/22/19 from [facility] via [facility] ems cart, accompanied by [facility] ems.INDIA HERRERA introduced to surroundings, call light, bed controls, phone, TV, temperature control, lights, meal times, smoking policy, visitor policy, side rail policy, bathrooms and showers. Patient Rights given to patient in the handbook. INDIA HERRERA verbalizes understanding that [facility] is not responsible for the loss or damage to any personal effects or valuables that are kept in the patients possession during their hospitalization. The patient's plan of care was discussed with the patient, he agrees to the plan & denies any questions or concerns at this time.
[2019-01-22] MEDS ORDERED: LORazepam INJ 2 MG/ML (ATIVAN) VIAL IV PRN (20:30)
[2019-01-22] MEDS ORDERED: SENNA W/DOCUSATE (SENOKOT S) TABLET PO PRN (20:30)
[2019-01-22] MEDS ORDERED: ONDANSETRON 4 MG (ZOFRAN) ORAL DISSOLVE TAB SL PRN (20:30)
[2019-01-22] MEDS ORDERED: D5 1/2 NS 1000 ML IV SOLUTION 1,000 ML IV PRN (20:30)
[2019-01-22] MEDS ORDERED: ANTACID SUSP 30 ML UDC (MYLANTA) PO PRN (20:30)
[2019-01-22] MEDS ORDERED: LORazepam 1 MG (ATIVAN) TAB PO PRN (20:30)
[2019-01-22] MEDS ORDERED: ONDANSETRON 4 MG/2 ML (SDV) Z0FRAN IV PRN (20:30)
[2019-01-22] MEDS ORDERED: LORazepam INJ 2 MG/ML (ATIVAN) VIAL IM/IV PRN (20:30)
[2019-01-22] MEDS ORDERED: MAGNESIUM OXIDE (MAG-OX)400 MG TAB PO SCH (21:00)
[2019-01-22 21:50] VITALS: BP 149/87
[2019-01-22] MEDS: LACTATED RINGERS 1,000 ML IV SCH (22:30)
[2019-01-23 00:12] VITALS: BP 158/86
--- NOTE | 2019-01-23 00:40 | NUR ---
During the admission process this rn asked this pt if he would be willing to seek alcohol treatment- pt states "I don't have a problem, I only drink 1-2 times a week." this rn asked this pt how much he drinks when he does drink pt stated "about 1 liter of vodka."
[2019-01-23] MEDS: LACTATED RINGERS 1,000 ML IV SCH (05:10)
[2019-01-23 06:22] LABS: BASOPHILS % (AUTO) 0 % (0-10); EOSINOPHILS % (AUTO) 0 % (0-10); HEMATOCRIT 42 % (40-54); HEMOGLOBIN 14.6 G/DL (13.3-17.7); LYMPHOCYTES # (AUTO) 0.6 X 10^3 (1.0-4.0); LYMPHOCYTES % (AUTO) 13 % (12-44); MEAN CORPUSCULAR HEMOGLOBIN 32 PG (25-34); MEAN CORPUSCULAR HGB CONC 35 G/DL (32-36); MEAN CORPUSCULAR VOLUME 91 FL (80-99); MONOCYTES # (AUTO) 0.8 X 10^3 (0.0-1.0); MONOCYTES % (AUTO) 17 % (0-12); NEUTROPHILS # (AUTO) 3.3 X 10^3 (1.8-7.8); NEUTROPHILS % (AUTO) 70 % (42-75); PLATELET COUNT 103 10^3/uL (130-400); RED CELL DISTRIBUTION WIDTH 12.7 % (10.0-14.5); WHITE BLOOD COUNT 4.7 10^3/uL (4.3-11.0)
[2019-01-23 06:36] LABS: BUN/CREATININE RATIO 10; CALCIUM 9.1 MG/DL (8.5-10.1); CARBON DIOXIDE 22 MMOL/L (21-32); CHLORIDE 98 MMOL/L (98-107); CREATININE SERUM 0.71 MG/DL (0.60-1.30); GFR ESTIMATED > 60; GLUCOSE 83 MG/DL (70-105); MAGNESIUM 1.8 MG/DL (1.6-2.4); POTASSIUM 3.5 MMOL/L (3.6-5.0); SODIUM 133 MMOL/L (135-145)
[2019-01-23] MEDS ORDERED: THIAMINE 100 MG (VITAMIN B-1) TAB PO SCH (07:00)
[2019-01-23] MEDS ORDERED: MULTIVIT W/MINERALS TAB (THERAGRAN M) PO SCH (07:00)
[2019-01-23 08:31] VITALS: BP 137/96
[2019-01-23] MEDS ORDERED: FOLIC ACID 1 MG TAB PO SCH (09:00)
--- NOTE | 2019-01-23 10:44 | NUR ---
CM DISCHARGE PLANNING: Visited with Brittaney about his ETOH addiction. He indicated to me that he wants treatment for this. He reports that he has transportation for this follow up once he gets to his home. He also reports that no one will come and pick him up because "they are not nice family". [place] [employer] was set up for him to take him back to [place], [place]. I did call and talk with his mother et she does indicate that she will not be able to pick him up. Spoke with [facility] at [phone] about addiction treatment services. She reports that they can schedule an appointment for him for addiction treatment et also can set him up with a primary care physician once he meets with their long term care social worker for addiction treatment. His appointment is set for Monday01/25/19 at 11 a.m. at [facility]. [facility] contact information given to Brittaney with their phone number. Appointment card was given to Brittaney et he repeats back the information. Encouraged him to keep his appointment et he reports that he will.
--- NOTE | 2019-01-23 11:06 | Short Stay Summary-Hospitalist ---
History of Present Illness HPI/Chief Complaint Pt is a 53yoCM witha PMH of alcohol abuse and withdrawal who prsented to the ER after a presumed seizure. He reports thathe drinks every day and varies between two large drinks and 1 liter of alcohol per day. 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 He does not remember much of what brought him to the hospital but he is feeling well today. He denies any desire to quit drinking and states he "wants to think about it." He is requesting discharge home. Source: patient Date Seen 01/23/19 Time Seen by a Provider: 11:06 Attending Physician Umu Toro MD PCP No,Local Physician Referring Physician Date of Admission Jan 22, 2019 at 6:25 pm Home Medications & Allergies Home Medications Reviewed patient Home Medication Reconciliation performed by pharmacy medication reconciliations emanations analysis technician and/or nursing. Patients Allergies have been reviewed. Allergies Allergies Coded Allergies No Known Drug Allergies (Unverified09/04/08) Past Ihgwjih-Busime-Einixn Hx Past Med/Social Hx: Reviewed Nursing Past Med/Soc Hx Patient Social History Alcohol Use: Regular Use Number of Drinks Today: 0 Alcohol Beverage of Choice: Beer Recreational Drug Use: No Smoking Status: Never a Smoker Type Used: Cigarettes 2nd Hand Smoke Exposure: No Recent Foreign Travel: No Contact w/other who traveled: No Recent Hopitalizations: No Recent Infectious Disease Expo: No Immunizations Up To Date Tetanus Booster (TDap): Unknown Pediatric: Yes Seasonal Allergies Seasonal Allergies: No Past Medical History Surgeries: Orthopedic Neurological: Seizure Disorder, Traumatic Brain Injury Reproductive: No Family History Unknown family medical history No Pertinent Family Hx Review of Systems Constitutional: no symptoms reported EENTM: no symptoms reported Respiratory: no symptoms reported Cardiovascular: no symptoms reported Gastrointestinal: no symptoms reported Genitourinary: no symptoms reported Musculoskeletal: no symptoms reported Skin: no symptoms reported Psychiatric/Neurological: See HPI, Seizure Physical Exam Physical Exam Vital Signs Vital Signs - First Documented 01/22/19 17:13 Temp 36.7 Pulse 100 Resp 20 B/P (MAP) 142/92 (109) Pulse Ox 95 O2 Delivery Room Air Capillary Refill : Less Than 3 Seconds Height, Weight, BMI Height: 6'0" Weight: 175lbs. oz. [id number]; 24.14 BMI Method:Stated General Appearance: No Apparent Distress, Chronically ill HEENT: PERRL/EOMI, Moist Mucous Membranes; No Scleral Icterus (L), No Scleral Icterus (R) Respiratory: Lungs Clear, No Respiratory Distress Cardiovascular: Regular Rate, Rhythm, No Murmur Gastrointestinal: Normal Bowel Sounds, Non Tender, Soft Extremity: Normal Capillary Refill, No Calf Tenderness, No Pedal Edema Neurologic/Psychiatric: Alert, Oriented x3, Normal Mood/Affect Skin: Normal Color, Warm/Dry Results Results/Procedures Labs Laboratory Tests 01/23/19 05:28 01/23/19 05:36 Patient resulted labs reviewed. Imaging: Reviewed Imaging Report Short Stay Diagnosis Discharge Diagnosis-Short Stay Admission Diagnosis Alcohol Withdrawal Seizure Final Discharge Diagnosis Alcohol Withdrawal Seizure Conclusion Plan Alcohol Withdrawal Seizure Alcohol Abuse No desire to quit drinking Distribution Coordinator consulted and resources given Will DC home with driving precautions (no driving fo 6 months) Recommended cessation Hyponatremia likely beer potomania Resolved lactic acidosis resolved, likely due to seizure Clinical Quality Measures DVT/VTE Risk/Contraindication: Risk Factor Score Per Nursin RFS Level Per Nursing on Admit: 1=Low/No VTE PPX UMU TORO MD Jan 23, 2019 11:06
--- NOTE | 2019-01-23 11:12 | Discharge Inst-Simple/Standard ---
Discharge Inst-Standard Reconcile Patient Problems Problems Reviewed?: Yes Patient Instructions/Follow Up Plan of Care/Instructions/FU: Please follow up with your primary care doctor inthe next week to follow up this hospital stay. Please continue to discuss alcohol cessation with them so that it can be done in a safe manner. Until you have follow up with your primary care doctor you should not drive for 6 months or until you are seizure free for 6 months. Activity as Tolerated: Yes Discharge Diet: No Restrictions Return to The Hospital For: Seizures, confusion, shaking, desire to withdraw, chest pain, shortness of breath, if you feel you are getting worse. Planned Outpatient Orders/Ref. Pneu Vac Indicated: Yes UMU BARRETO MD Jan 23, 2019 11:12 am
== END 2019-01-23 11:23 | disposition home or self-care (01) ==
LOC: EDUNIT# 17:13 → ER FS 17:14 → 4TH 18:25
PROVIDERS: ADMIT Family Medicine; ATTEND Family Medicine
DX: G40.509 Epileptic seizures related to external causes, not intractable, without status epilepticus (principal); F10.239 Alcohol dependence with withdrawal, unspecified; E87.1 Hypo-osmolality and hyponatremia; Z79.891 Long term (current) use of opiate analgesic; Z87.891 Personal history of nicotine dependence
CPT/HCPCS: 36415; 70450; 80048; 80053; 80320; 83605; 83735; 84484; 85025; 93005; 96374; 96375; G0378